=== PATIENT | female | born 1935 | race Caucasian/White ===

== ENCOUNTER 2017-05-13 17:02 | Inpatient (IN) | payer OTHER ==
--- NOTE | 2017-05-13 17:20 | PDOC ---
History of Present Illness - General Chief Complaint: Syncope/Near Syncope Stated Complaint: SEIZURE Time Seen by Provider: 05/13/17 17:19 History Source: Patient, Family (Daughter Fatou at bedside ) Exam Limitations: Clinical Condition (Patient has limited hearing in left ear ) - History of Present Illness Initial Comments: 81 yr old female with past history of breast carcinoma, schizoaffective disorder , and osteoarthritis presents to ED via EMS following seizure-like episodes. Patient states that she woke up this morning at 4 am with "tremors" in her legs and was unable to pour herself milk as her hands were shaking. She walked around and the tremors resolved but she continued to feel fatigued. Around noon she went to an oncology appt with Dr. Taylor. While in the office seated in the exam chair the patient experienced an episode where head extended backward, her jaw dropped and she lost consciousness for about 1 min. Patient did not hit her head during the episode. No shaking, incontinence, or tongue biting was noted by her daughter during the event. EMS was called to transfer the patient to the ED. While lying on the stretcher, the patient experienced a second episode where her head extended, her jaw dropped and she lost consciousness for about 1 min. During this episode EMS noted shaking of her limbs. The patient admits to extreme fatigue and weakness prior to the episodes. Patient admits to mild headache, feelings of her heart racing, constipation, urinary retention x few months, mild SOB with exertion, and cold intolerance. Patient denies fevers , chills, changes in vision or difficulty speaking. she denies any fever, chills , recent cold, or sick contact. She denies any abdominal pain , N/V diarrhea. she denies any swelling in her feet . pt was not seen by physician for many years, she has dysuria, frequency and walk up multiple time to pass urine but nothing comes out. pt lives with her daughter. PMH: breast cancer, schizoaffective disorder, osteoarthritis PSH: breast cancer left lumbectomy, right ear surgery when she was 12 years old. FH: breast cancer and colon cancer, prostate cancer social History: denies any smoking, alcohol or elicit drugs abuse. lives with her daughter Allergies NKDA but did not tolerate zyprexa the generic brand 05/13/17 19:02 05/13/17 19:23 Past History - Past Medical History Allergies/Adverse Reactions: Allergies Allergy/AdvReac Type Severity Reaction Status Date / Time No Known Drug Allergies Allergy Verified 05/13/17 17:10 Home Medications: Ambulatory Orders LORazepam [Ativan] 1 mg PO TID 08/11/12 Olanzapine [Zyprexa] 15 mg PO HS 08/11/12 Sertraline HCl [Zoloft -] 150 mg PO DAILY 08/11/12 traZODone HCL [Desyrel -] 50 mg PO DAILY 08/11/12 Cancer: Yes (lt breast) COPD: No Psychiatric Problems: Yes (depression, anxeity,schizoaffective disorder ) - Surgical History Other Surgical History: Age 9, ear surgx 05/13/17 18:45 - Family Disease History Comment:: Family hx of colon CA and breast CA - Suicide/Smoking/Psychosocial Hx Smoking History: Never smoked Have you smoked in the past 12 months: No Information on smoking cessation initiated: No Hx Alcohol Use: No Drug/Substance Use Hx: No Substance Use Type: None Patient Lives Alone: No Lives with/in: Lives with daughter *Physical Exam - Vital Signs Last Vital Signs Temp Pulse Resp BP Pulse Ox 98.0 F 74 18 150/69 100 05/13/17 17:11 05/13/17 17:11 05/13/17 17:11 05/13/17 17:11 05/13/17 17:11 - Physical Exam Comments: GENERAL: White female well-nourished and well-groomed in no acute distress HEAD: Normocephalic; atraumatic NECK: Supple, no lymphadenopathy, no thyromegaly, trachea midline CARDIOVASCULAR: No JVD; Regular at 78 bpm; normal S1/S2 LUNGS: CTA b/l no wheezes or rhonci ABD: No lesions or rashes; Normoactive bowel sounds; mild suprapubic tenderness ; no hepatomegaly/splenomegaly NEURO: CN II-XII grossly intact; decreased hearing in left ear; Sensation grossly intact UE/LE b/l; strength 5/5 b/l MSK: No bony deformities or contractures 05/13/17 19:00 ED Treatment Course - LABORATORY CBC & Chemistry Diagram: 05/13/17 18:14 05/13/17 18:49 - RADIOLOGY Radiology Studies Ordered: 05/13/17 19:[address] without contrast: no intra cranial acute pathology *DC/Admit/Observation/Transfer Diagnosis at time of Disposition: Seizure Syncope Qualifiers: Syncope type: unspecified Qualified Code(s): R55 - Syncope and collapse - Discharge Dispostion Admit: Yes - Referrals - Patient Instructions - Post Discharge Activity
[2017-05-13] MEDS ORDERED: levETIRAcetam 500 MG/5 ML INJECTION VIAL IVPB ONE ×2 (17:50→17:57)
--- NOTE | 2017-05-13 17:59 | PDOC ---
Attending Attestation - HPI HPI: 05/13/17 18:33 Pt is a 81 yo F BIBA with a PMHx of Anxiety, Depression, Breast CA, Schizophrenia who presents to the ED s/p new onset seizure today. As per daughter at bedside, patient was at her oncologists office for routine visit when she suddenly stared into space and fell to the ground. Patient seized on the ground for >5 minutes. Subsequently, patients post ictal period lasted 5 minutes and patient returned to baseline. EMS arrived to office and patient later seized again enroute to the ED. Patient presents to the ED for further evaluation. As per daughter, patient woke up experiencing arm and lip tremors which later subsided. Note, patient on Ativan, Zoloft, Trazodone. Patient denies any head trauma, LOC, other injury. Patient denies tongue biting, nausea or vomiting. Patient Oncologist: Brandon - Physicial Exam PE: 05/13/17 18:33 GENERAL: Well developed, well nourished. Awake and alert. No acute distress. HEENT: Normocephalic, atraumatic. PERRLA, EOMI. No conjunctival pallor. Sclera are non- icteric. Moist mucous membranes. Oropharynx is clear. NECK: Supple. Full ROM. No JVD. Carotid pulses 2+ and symmetric, without bruits. No thyromegaly. No lymphadenopathy. CARDIOVASCULAR: Regular rate and rhythm. No murmurs, rubs, or gallops. Distal pulses are 2+ and symmetric. PULMONARY: No evidence of respiratory distress. Lungs clear to auscultation bilaterally. No wheezing, rales or rhonchi. ABDOMINAL: Soft. Non-tender. Non-distended. No rebound or guarding. No organomegaly. Normoactive bowel sounds. MUSCULOSKELETAL Normal range of motion at all joints. No bony deformities or tenderness. No CVA tenderness. EXTREMITIES: No cyanosis. No clubbing. No edema. No calf tenderness. SKIN: Warm and dry. Normal capillary refill. No rashes. No jaundice. NEUROLOGICAL: Alert, awake, appropriate. Cranial nerves 2-12 intact. No deficits to light touch and temperature in face, upper extremities and lower extremities. No motor deficits in the in face, upper extremities and lower extremities. Normoreflexic in the upper and lower extremities. Normal speech. Toes are down-going bilaterally. PSYCHIATRIC: Cooperative. Good eye contact. Appropriate mood and affect. - Medical Decision Making 05/13/17 18:34 Documentation prepared by Zulema Villasenor, acting as medical billing and coding specialist for Clara Elias MD 05/13/17 21:02 Eunice paged via phone answering service. Awaiting call back. 05/13/17 21:32 Eunice returned the page and the patients case was discussed. <Zulema Villasenor - Last Filed: 05/13/17 21:32> - Resident Resident Name: RozTravis - ED Attending Attestation I have performed the following: I have examined & evaluated the patient, The case was reviewed & discussed with the resident, I agree w/resident's findings & plan, Exceptions are as noted - HPI HPI: 05/13/17 17:58 81-year-old woman brought in by ambulance from Dr. Luis M Taylor's office after a witnessed seizure. Patient has no known seizure history. She was a past medical history significant for breast cancer in 2012, lumpectomy and takes Xanax, zoloft, trazodone - Physicial Exam PE: 05/13/17 21:[address] Lindsey and the patient is admitted to [facility] telemetry. Spoke with Dr. Dawson from neurology and the patient will be started on Keppra 500 twice a day and we will get MRI with contrast. Gadolinium in the a.m. <Clara Elias - Last Filed: 05/13/17 21:35>
[2017-05-13 18:38] LABS: INR 1.17 (0.82-1.09); PROTHROMBIN TIME (PATIENT) 13.2 SEC (9.98-11.88)
[2017-05-13] MEDS ORDERED: levETIRAcetam 500 MG TABLET (FP) PO ONE ×2 (19:04→19:42)
[2017-05-13 19:14] LABS: BASO % 0.8 % (0-2.0); EOS % 3.1 % (0-4.5); HEMATOCRIT 32.9 % (32.4-45.2); HEMOGLOBIN 11.6 GM/dL (10.7-15.3); LYMPH % 19.3 % (8-40); MCH 31.4 pg (25.7-33.7); MCHC 35.4 g/dl (32.0-36.0); MEAN CELL VOLUME 88.7 fl (80-96); MEAN PLT VOLUME 8.3 fl (7.5-11.1); MONO % 9.4 % (3.8-10.2); NEUT % 67.4 % (42.8-82.8); PLATELET COUNT 177 K/MM3 (134-434); RDW 12.5 % (11.6-15.6); WHITE BLOOD COUNT 4.8 K/mm3 (4.0-10.0)
[2017-05-13] MEDS ORDERED: SODIUM CHLORIDE 1,000 ML IV SCH (19:15)
[2017-05-13 19:23] LABS: ALBUMIN 3.5 g/dl (3.4-5.0); ANION GAP 6 (8-16); BLOOD UREA NITROGEN 40 mg/dL (7-18); CALCIUM 8.2 mg/dL (8.5-10.1); CHLORIDE 111 mmol/L (98-107); CO2 26 mmol/L (21-32); CREATININE 0.7 mg/dL (0.55-1.02); GLUCOSE,RANDOM 103 mg/dL (74-106); SGPT/ALT 21 U/L (12-78); SODIUM 143 mmol/L (136-145)
[2017-05-13 19:25] LABS: ALK PHOS 120 U/L (45-117); BILIRUBIN,TOTAL 0.4 mg/dL (0.2-1.0); SGOT/AST 18 U/L (15-37); TOT PROT 6.3 g/dl (6.4-8.2)
[2017-05-13 20:42] LABS: PHOSPHOROUS 2.9 mg/dL (2.5-4.9)
[2017-05-13 20:43] LABS: MAGNESIUM 2.2 mg/dL (1.8-2.4)
[2017-05-13] MEDS ORDERED: LETROZOLE 2.5 MG TABLET (FP) PO ONE (21:51)
--- NOTE | 2017-05-13 22:45 | HP ---
Admitting History and Physical - Primary Care Physician PCP: Hardik Lindsey - Admission Chief Complaint: seizure History of Present Illness: 81 yo F BIBA with a PMHx of Anxiety, Depression, Breast CA, Schizophrenia who presents to the ED s/p new onset seizure today. As per daughter at bedside, patient was at her oncologists office for routine visit when she suddenly stared into space and fell to the ground. Patient seized on the ground for >5 minutes. Subsequently, patients post ictal period lasted 5 minutes and patient returned to baseline. EMS arrived to office and patient later seized again enroute to the ED. Patient presents to the ED for further evaluation. As per daughter, patient woke up experiencing arm and lip tremors which later subsided. history taken from ER records..poor historian - Past Medical History Psych: Yes: Anxiety, Depression - Smoking History Smoking history: Never smoked Have you smoked in the past 12 months: No - Alcohol/Substance Use Hx Alcohol Use: No Home Medications - Allergies Allergies/Adverse Reactions: Allergies Allergy/AdvReac Type Severity Reaction Status Date / Time No Known Drug Allergies Allergy Verified 05/13/17 17:10 - Home Medications Home Medications: Ambulatory Orders LORazepam [Ativan] 1 mg PO TID 08/11/12 Olanzapine [Zyprexa] 15 mg PO HS 08/11/12 Sertraline HCl [Zoloft -] 150 mg PO DAILY 08/11/12 traZODone HCL [Desyrel -] 50 mg PO DAILY 08/11/12 Physical Examination Vital Signs: Vital Signs Temperature 98.0 F 05/13/17 17:11 Pulse Rate 74 05/13/17 17:11 Respiratory Rate 18 05/13/17 17:11 Blood Pressure 150/69 05/13/17 17:11 O2 Sat by Pulse Oximetry (%) 97 05/13/17 18:18 Constitutional: Yes: No Distress HENT: Yes: Atraumatic Neck: Yes: Supple Cardiovascular: Yes: Regular Rate and Rhythm Respiratory: Yes: CTA Bilaterally Gastrointestinal: Yes: Normal Bowel Sounds Extremities: Yes: WNL Labs: CBC, BMP 05/13/17 18:14 05/13/17 18:49 Imaging - Results Cat Scan: Report Reviewed Problem List - Problems (1) Seizure Assessment/Plan: on seizure meds neuro consult Code(s): R56.9 - UNSPECIFIED CONVULSIONS (2) Syncope Code(s): R55 - SYNCOPE AND COLLAPSE Qualifiers: Syncope type: unspecified Qualified Code(s): R55 - Syncope and collapse (3) Anxiety and depression Assessment/Plan: on meds continue Code(s): F41.9 - ANXIETY DISORDER, UNSPECIFIED; F32.9 - MAJOR DEPRESSIVE DISORDER, SINGLE EPISODE, UNSPECIFIED Assessment/Plan Laboratory Tests 05/13/17 05/13/17 05/13/17 17:54 18:14 18:14 WBC 4.8 RBC 3.70 Hgb 11.6 Hct 32.9 MCV 88.7 MCH 31.4 MCHC 35.4 RDW 12.5 Plt Count 177 MPV 8.3 Neutrophils % 67.4 Lymphocytes % 19.3 Monocytes % 9.4 Eosinophils % 3.1 Basophils % 0.8 PT with INR 13.20 H INR 1.17 H Sodium Cancelled Potassium Cancelled Chloride Cancelled Carbon Dioxide Cancelled Anion Gap Cancelled BUN Cancelled Creatinine Cancelled Creat Clearance w eGFR Cancelled Random Glucose Cancelled Calcium Cancelled Phosphorus Magnesium Total Bilirubin Cancelled AST Cancelled ALT Cancelled Alkaline Phosphatase Cancelled Creatine Kinase Cancelled Troponin I Cancelled Total Protein Cancelled Albumin Cancelled 05/13/17 05/13/17 05/13/17 18:49 18:49 20:07 WBC RBC Hgb Hct MCV MCH MCHC RDW Plt Count MPV Neutrophils % Lymphocytes % Monocytes % Eosinophils % Basophils % PT with INR INR Sodium 143 Potassium 4.0 Chloride 111 H Carbon Dioxide 26 Anion Gap 6 L BUN 40 H Creatinine 0.7 Creat Clearance w eGFR > 60 Random Glucose 103 Calcium 8.2 L Phosphorus 2.9 Magnesium 2.2 Total Bilirubin 0.4 AST 18 ALT 21 Alkaline Phosphatase 120 H Creatine Kinase 92 Troponin I < 0.02 Total Protein 6.3 L Albumin 3.5 Active Medications Generic Name Dose Route Start Last Admin Trade Name Freq PRN Reason Stop Dose Admin Sodium Chloride 1,000 mls @ 75 mls/hr 05/13/17 19:15 05/13/17 19:45 Normal Saline - IV 75 mls/hr ASDIR CARMEN Administration Levetiracetam 500 mg 05/14/17 06:00 Keppra - PO BID CARMEN Trazodone HCl 50 mg 05/13/17 22:00 Desyrel - PO HS CARMEN
[2017-05-13] MEDS ORDERED: ACETAMINOPHEN 325 MG TABLET (FP) PO PRN (22:49)
[2017-05-13] MEDS: OLANZapine 5 MG TABLET PO SCH (23:08)
[2017-05-13] MEDS: traZODone HCL 50 MG TABLET (FP) PO SCH (23:09)
[2017-05-14] MEDS: levETIRAcetam 500 MG TABLET (FP) PO SCH ×3 (06:00→22:44)
[2017-05-14 06:55] LABS: BASO % 1.4 % (0-2.0); EOS % 5.4 % (0-4.5); HEMATOCRIT 28.9 % (32.4-45.2); HEMOGLOBIN 10.1 GM/dL (10.7-15.3); LYMPH % 33.7 % (8-40); MEAN CELL VOLUME 88.6 fl (80-96); MEAN PLT VOLUME 7.6 fl (7.5-11.1); MONO % 11.6 % (3.8-10.2); NEUT % 47.9 % (42.8-82.8); PLATELET COUNT 143 K/MM3 (134-434); RBC 3.26 M/mm3 (3.60-5.2); RDW 12.1 % (11.6-15.6); WHITE BLOOD COUNT 3.3 K/mm3 (4.0-10.0)
[2017-05-14 07:04] LABS: ALBUMIN 3.1 g/dl (3.4-5.0); ANION GAP 7 (8-16); BLOOD UREA NITROGEN 26 mg/dL (7-18); CALCIUM 8.4 mg/dL (8.5-10.1); CHLORIDE 112 mmol/L (98-107); CO2 27 mmol/L (21-32); CREATININE 0.7 mg/dL (0.55-1.02); GLUCOSE,RANDOM 92 mg/dL (74-106); POTASSIUM 4.2 mmol/L (3.5-5.1); SGOT/AST 15 U/L (15-37); SGPT/ALT 17 U/L (12-78); SODIUM 146 mmol/L (136-145)
[2017-05-14 07:05] LABS: ALK PHOS 108 U/L (45-117); BILIRUBIN,TOTAL 0.7 mg/dL (0.2-1.0); TOT PROT 5.7 g/dl (6.4-8.2)
[2017-05-14 09:25] LABS: URINE APPEARANCE CLEAR; URINE BILIRUBIN NEGATIVE (NEGATIVE); URINE BLOOD NEGATIVE (NEGATIVE); URINE COLOR LTYELLOW; URINE GLUCOSE (UA) NEGATIVE (NEGATIVE); URINE KETONE NEGATIVE (NEGATIVE); URINE NITRITE NEGATIVE (NEGATIVE); URINE PROTEIN NEGATIVE (NEGATIVE); URINE UROBILINOGEN NEGATIVE mg/dL (0.2-1.0)
[2017-05-14 09:27] LABS: URINE LEUK ESTERASE 1+ (NEGATIVE)
[2017-05-14 09:28] LABS: EPI CELLS RARE /HPF (FEW); URINE BACTERIA RARE /hpf (NONE SEEN); URINE MUCUS RARE
[2017-05-14] MEDS ORDERED: traZODone HCL 100 MG TABLET (FP) PO SCH (10:00)
[2017-05-14] MEDS: LORazepam 1 MG TABLET PO SCH ×2 (10:33→22:45)
[2017-05-14] MEDS: HEPARIN NA (PORCINE) 5,000 UNITS/ML 1ML VIAL SQ SCH ×2 (10:33→22:45)
[2017-05-14] MEDS: SERTRALINE HCL 50 MG TABLET (FP) PO SCH (10:33)
[2017-05-14] MEDS: LETROZOLE 2.5 MG TABLET (FP) PO SCH (10:34)
[2017-05-14] MEDS ORDERED: LORazepam 1 MG TABLET PO PRN (12:00)
--- NOTE | 2017-05-14 12:19 | EKG ---
Test Reason : Blood Pressure : / mmHG Vent. Rate : 072 BPM Atrial Rate : 072 BPM P-R Int : 148 ms QRS Dur : 088 ms QT Int : 364 ms P-R-T Axes : 052 003 015 degrees QTc Int : 398 ms NORMAL SINUS RHYTHM POSSIBLE LEFT ATRIAL ENLARGEMENT BORDERLINE ECG WHEN COMPARED WITH ECG OF 07-JUN-2005 22:31, NO SIGNIFICANT CHANGE WAS FOUND Confirmed by MD SLAVA, TRACE ([id number]) on 05/14/2017 12:18:49 PM Referred By: Confirmed By:TRACE PEDERSEN MD
--- NOTE | 2017-05-14 18:11 | CON.NEURO ---
Consult - History of Present Illness History of Present Illness: 81 yo F BIBA with a PMHx of Anxiety, Depression, Breast CA, Schizophrenia who presents to the ED s/p new onset seizure today. As per daughter at bedside, patient was at her oncologists office for routine visit when she suddenly stared into space and fell to the ground. Patient seized on the ground for >5 minutes. Subsequently, patients post ictal period lasted 5 minutes and patient returned to baseline. EMS arrived to office and patient later seized again enroute to the ED. Patient presents to the ED for further evaluation. As per daughter, patient woke up experiencing arm and lip tremors which later subsided. Note, patient on Ativan, Zoloft, Trazodone. Patient denies any head trauma, LOC, other injury. Patient denies tongue biting, nausea or vomiting. MRI Brain: COMPARISON: 09/30/2015 MRI brain. FINDINGS: There is image degradation from patient motion on all postcontrast sequences, somewhat limiting evaluation and decreasing exam sensitivity for enhancing lesions There is no abnormal restricted diffusion within the brain. There is no definite enhancing intracranial mass, abnormal contrast enhancement within the brain or leptomeninges. There is generalized, age-related volume loss with secondary prominence of the CSF spaces. There is no hydrocephalus. There is no extra- axial collection. No evidence of intra-axial hemorrhage. There are no mass effects. No midline shift or herniation pattern. The hippocampal formations are normal and symmetric in size and signal. The parahippocampal gyri and fornices are unremarkable. Flow related signal voids are present in the central arteries of the [place] and major dural sinuses. There is a partially empty sella turcica. The visualized bone marrow signal is unremarkable. There are no fluid levels in the visualized paranasal sinuses. Mild mucosal thickening along bilateral anterior ethmoids. There is fluid opacifying air cells and the tip of the left mastoid process. The visualized intraorbital contents are grossly unremarkable. IMPRESSION: No evidence of mesial temporal sclerosis, intracranial mass or cerebral infarction. No mass effects or hydrocephalus. - Alcohol/Substance Use Hx Alcohol Use: No - Smoking History Smoking history: Never smoked Have you smoked in the past 12 months: No Home Medications - Allergies Allergies/Adverse Reactions: Allergies Allergy/AdvReac Type Severity Reaction Status Date / Time No Known Drug Allergies Allergy Verified 05/13/17 17:10 - Home Medications Home Medications: Ambulatory Orders LORazepam [Ativan] 1 mg PO TID 08/11/12 Olanzapine [Zyprexa] 15 mg PO HS 08/11/12 Sertraline HCl [Zoloft -] 150 mg PO DAILY 08/11/12 traZODone HCL [Desyrel -] 50 mg PO DAILY 08/11/12 Physical Exam-Neuro Vital Signs: Vital Signs Temperature 100 F H 05/14/17 17:56 Pulse Rate 75 05/14/17 17:56 Respiratory Rate 18 05/14/17 17:56 Blood Pressure 128/75 05/14/17 17:56 O2 Sat by Pulse Oximetry (%) 95 05/14/17 09:00 Labs: CBC, BMP 05/14/17 05:30 05/14/17 05:30 INR, PTT INR 1.17 (0.82-1.09) H 05/13/17 17:54 Imaging - Results MRI: Report Reviewed, Image Reviewed Assessment/Plan 81 yo F BIBA with a PMHx of Anxiety, Depression, Breast CA, Schizophrenia who presents to the ED s/p new onset seizure x 2 . MRI Brain: no acute stroke or mass
--- NOTE | 2017-05-14 19:12 | PN ---
Progress Note, Physician History of Present Illness: stable - Current Medication List Current Medications: Active Medications Acetaminophen (Tylenol -) 650 mg PO Q6H PRN PRN Reason: FEVER Heparin Sodium (Porcine) (Heparin -) 5,000 unit SQ BID [facility] Last Admin: 05/14/17 10:33 Dose: 5,000 unit Letrozole (Femara -) 2.5 mg PO DAILY [facility] Last Admin: 05/14/17 10:34 Dose: 2.5 mg Levetiracetam (Keppra -) 500 mg PO BID [facility] Last Admin: 05/14/17 10:33 Dose: 500 mg Lorazepam (Ativan -) 1 mg PO BID [facility] Last Admin: 05/14/17 10:33 Dose: 1 mg Olanzapine (Zyprexa -) 15 mg PO [facility] Last Admin: 05/13/17 23:08 Dose: Not Given Sertraline HCl (Zoloft -) 150 mg PO DAILY [facility] Last Admin: 05/14/17 10:33 Dose: 150 mg Trazodone HCl (Desyrel -) 50 mg PO [facility] Last Admin: 05/13/17 23:09 Dose: Not Given - Objective Vital Signs: Vital Signs Temperature 100 F H 05/14/17 17:56 Pulse Rate 75 05/14/17 17:56 Respiratory Rate 18 05/14/17 17:56 Blood Pressure 128/75 05/14/17 17:56 O2 Sat by Pulse Oximetry (%) 95 05/14/17 09:00 Constitutional: Yes: No Distress HENT: Yes: Atraumatic Neck: Yes: Supple Cardiovascular: Yes: Regular Rate and Rhythm Respiratory: Yes: CTA Bilaterally Gastrointestinal: Yes: Normal Bowel Sounds Extremities: Yes: WNL Edema: No Peripheral Pulses WNL: Yes Neurological: Yes: Alert, Oriented Labs: CBC, BMP 05/14/17 05:30 05/14/17 05:30 INR, PTT INR 1.17 (0.82-1.09) H 05/13/17 17:54 Problem List - Problems (1) Seizure Assessment/Plan: on seizure meds seizure precautions neuro consult Code(s): R56.9 - UNSPECIFIED CONVULSIONS (2) Syncope Code(s): R55 - SYNCOPE AND COLLAPSE Qualifiers: Syncope type: unspecified Qualified Code(s): R55 - Syncope and collapse (3) Anxiety and depression Code(s): F41.9 - ANXIETY DISORDER, UNSPECIFIED; F32.9 - MAJOR DEPRESSIVE DISORDER, SINGLE EPISODE, UNSPECIFIED Assessment/Plan d/w daughter in detail care plan
--- NOTE | 2017-05-14 19:28 | CON.NEURO ---
Consult - History of Present Illness History of Present Illness: 81 yo F BIBA with a PMHx of Anxiety, Depression, Breast CA, Schizophrenia who presents to the ED s/p new onset seizure today. As per daughter at bedside, patient was at her oncologists office for routine visit when she suddenly stared into space and fell to the ground, there were no movements at all, the LOC lasted for 1 min, she came to and was NOT confused. She was than sat up in a chair- had sudden" slumping" of head and LOC lasting 30 seconds, she again wasnot confused and no movements noted. . Initial notes document post ictal "confusion" but the daughter Fatou denies these to me.returned to baseline. EMS arrived to office and patient later again had LOCx 30 seconds, this time ?? postictal confusion but no movements noted.enroute to the ED. Patient presents to the ED for further evaluation. Pts. daughter also reports a hx. of "racing heart beat" in past. As per daughter, patient woke up experiencing arm and lip tremors which later subsided. Note, patient on Ativan, Zoloft, Trazodone, Zyprtexa. Patient denies any head trauma, LOC, other injury. Patient denies tongue biting, nausea or vomiting. MRI Brain: COMPARISON: 09/30/2015 MRI brain. FINDINGS: There is image degradation from patient motion on all postcontrast sequences, somewhat limiting evaluation and decreasing exam sensitivity for enhancing lesions There is no abnormal restricted diffusion within the brain. There is no definite enhancing intracranial mass, abnormal contrast enhancement within the brain or leptomeninges. There is generalized, age-related volume loss with secondary prominence of the CSF spaces. There is no hydrocephalus. There is no extra- axial collection. No evidence of intra-axial hemorrhage. There are no mass effects. No midline shift or herniation pattern. The hippocampal formations are normal and symmetric in size and signal. The parahippocampal gyri and fornices are unremarkable. Flow related signal voids are present in the central arteries of the [place] and major dural sinuses. There is a partially empty sella turcica. The visualized bone marrow signal is unremarkable. There are no fluid levels in the visualized paranasal sinuses. Mild mucosal thickening along bilateral anterior ethmoids. There is fluid opacifying air cells and the tip of the left mastoid process. The visualized intraorbital contents are grossly unremarkable. IMPRESSION: No evidence of mesial temporal sclerosis, intracranial mass or cerebral infarction. No mass effects or hydrocephalus. - Past Medical History Psych: Yes: Anxiety, Depression - Alcohol/Substance Use Hx Alcohol Use: No - Smoking History Smoking history: Never smoked Have you smoked in the past 12 months: No Home Medications - Allergies Allergies/Adverse Reactions: Allergies Allergy/AdvReac Type Severity Reaction Status Date / Time No Known Drug Allergies Allergy Verified 05/13/17 17:10 - Home Medications Home Medications: Ambulatory Orders LORazepam [Ativan] 1 mg PO TID 08/11/12 Olanzapine [Zyprexa] 15 mg PO HS 08/11/12 Sertraline HCl [Zoloft -] 150 mg PO DAILY 08/11/12 traZODone HCL [Desyrel -] 50 mg PO DAILY 08/11/12 Physical Exam-Neuro Vital Signs: Vital Signs Temperature 100 F H 05/14/17 17:56 Pulse Rate 75 05/14/17 17:56 Respiratory Rate 18 05/14/17 17:56 Blood Pressure 128/75 05/14/17 17:56 O2 Sat by Pulse Oximetry (%) 95 05/14/17 09:00 Labs: CBC, BMP 05/14/17 05:30 05/14/17 05:30 INR, PTT INR 1.17 (0.82-1.09) H 05/13/17 17:54 - Neuro Exam Level Of Consciousness: Yes: Alert, Oriented to Person, Oriented to Place (Not oriented to time/date) Eyes: Yes: TY Speech: WNL Dominant Hand: Left Mini Mental Exam: Impaired attention/concentration. Somewhat pressured speech. Cranial Nerves II-XII Intact: Yes Gag: Present DTR's: 1+ Left Achilles, 1+ Right Achilles (Bilat.knee jerks-1+), 2+ Left Bicep , 2+ Right Bicep, 2+ Left Tricep, 2+ Right Tricep, 2+ Left Brachioradialis, 2+ Right Brachioradialis Motor Strength: 5/5: Left Arm, Right Arm, Left Leg, Right Leg Gait: Other (Has been ambulating with cane x years secondary to bilat. knee arthritis) Imaging - Results X-ray: Report Reviewed (MRI reviewed) Assessment/Plan 81 yo F BIBA with a PMHx of Anxiety, Depression, Breast CA, Schizophrenia who presents to the ED s/p 3 events that are said to have been seizures. MRI Brain: no acute stroke or mass. By the daughters description she appears to have had syncopal episodes given lack of movements/incontinence and at least after 2 spells clearly no confusion. Suggest: Cont. Keppra 500mg bid Syncope w/u-telemetry, cardiology consultation, carotid ultrasound and echocardiogram if deemed necessary by cardiology. Thank you, Meaghan Frederick MD.
[2017-05-14] MEDS ORDERED: BISACODYL 10 MG SUPP.RECT RC ONE (22:30)
[2017-05-14] MEDS: traZODone HCL 50 MG TABLET (FP) PO SCH (22:44)
[2017-05-14] MEDS: OLANZapine 5 MG TABLET PO SCH (22:45)
[2017-05-15] MEDS ORDERED: PT OWN MED DRAWER 7, Y5N ONE ×2 (10:10→10:54)
[2017-05-15] MEDS: LORazepam 1 MG TABLET PO SCH ×2 (10:40→21:22)
[2017-05-15] MEDS: SERTRALINE HCL 50 MG TABLET (FP) PO SCH (10:40)
[2017-05-15] MEDS: LETROZOLE 2.5 MG TABLET (FP) PO SCH (10:40)
[2017-05-15] MEDS: HEPARIN NA (PORCINE) 5,000 UNITS/ML 1ML VIAL SQ SCH ×2 (10:40→21:34)
[2017-05-15] MEDS: levETIRAcetam 500 MG TABLET (FP) PO SCH ×2 (10:40→21:21)
--- NOTE | 2017-05-15 17:50 | PN ---
Progress Note, Physician History of Present Illness: stable - Current Medication List Current Medications: Active Medications Acetaminophen (Tylenol -) 650 mg PO Q6H PRN PRN Reason: FEVER Heparin Sodium (Porcine) (Heparin -) 5,000 unit SQ BID [facility] Last Admin: 05/15/17 10:40 Dose: 5,000 unit Letrozole (Femara -) 2.5 mg PO DAILY [facility] Last Admin: 05/15/17 10:40 Dose: 2.5 mg Levetiracetam (Keppra -) 500 mg PO BID [facility] Last Admin: 05/15/17 10:40 Dose: 500 mg Lorazepam (Ativan -) 1 mg PO BID [facility] Last Admin: 05/15/17 10:40 Dose: 1 mg Olanzapine (Zyprexa -) 15 mg PO HS [facility] Last Admin: 05/14/17 22:45 Dose: 15 mg Sertraline HCl (Zoloft -) 150 mg PO DAILY [facility] Last Admin: 05/15/17 10:40 Dose: 150 mg Trazodone HCl (Desyrel -) 50 mg PO HS [facility] Last Admin: 05/14/17 22:44 Dose: 50 mg - Objective Vital Signs: Vital Signs Temperature 98.4 F 05/15/17 14:13 Pulse Rate 80 05/15/17 14:13 Respiratory Rate 14 05/15/17 14:13 Blood Pressure 113/64 05/15/17 14:13 O2 Sat by Pulse Oximetry (%) 95 05/15/17 09:00 Constitutional: Yes: No Distress HENT: Yes: Atraumatic Neck: Yes: Supple Cardiovascular: Yes: Regular Rate and Rhythm Respiratory: Yes: CTA Bilaterally Gastrointestinal: Yes: Normal Bowel Sounds Extremities: Yes: WNL Edema: No Peripheral Pulses WNL: Yes Neurological: Yes: Alert, Oriented Labs: CBC, BMP 05/14/17 05:30 05/14/17 05:30 INR, PTT INR 1.17 (0.82-1.09) H 05/13/17 17:54 Problem List - Problems (1) Seizure Assessment/Plan: on seizure meds seizure precautions neuro consult mri done report reviewed Code(s): R56.9 - UNSPECIFIED CONVULSIONS (2) Syncope Assessment/Plan: will get carotid us cardiology consult as per neuro recommendation troponin negative Code(s): R55 - SYNCOPE AND COLLAPSE Qualifiers: Syncope type: unspecified Qualified Code(s): R55 - Syncope and collapse (3) Anxiety and depression Code(s): F41.9 - ANXIETY DISORDER, UNSPECIFIED; F32.9 - MAJOR DEPRESSIVE DISORDER, SINGLE EPISODE, UNSPECIFIED (4) Breast CA Assessment/Plan: h/o stable Code(s): C50.919 - MALIGNANT NEOPLASM OF UNSP SITE OF UNSPECIFIED FEMALE BREAST Qualifiers: Laterality: unspecified laterality
[2017-05-15] MEDS: traZODone HCL 50 MG TABLET (FP) PO SCH (21:21)
[2017-05-15] MEDS: OLANZapine 5 MG TABLET PO SCH (21:22)
--- NOTE | 2017-05-16 08:32 | CON.CARD ---
Consult Consult Specialty:: Cardiology Referred by:: Dr. Lindsey Reason for Consultation:: Seizure vs Syncope - History of Present Illness Chief Complaint: I "passed out" History of Present Illness: 81F with PMH Breast CA admitted to tele with seizure vs syncope. Episode of altered MS yesterday- " blank stare", unresponsive. She denies CP, SOB, pleuritic pain. Denies Palps. Seen by Neuro, MRI brain negative. While I was examining her she had another episode of unresponsiveness, eyes open , blinking, not speaking. Had pulse entire time and NSR on Tele. After approximately 10 seconds, regained normal mental status - History Source History Provided By: Patient, Medical Record - Past Medical History Heme/Onc: Yes: Other (Breast CA) Psych: Yes: Anxiety, Depression - Alcohol/Substance Use Hx Alcohol Use: No - Smoking History Smoking history: Never smoked Have you smoked in the past 12 months: No - Social History Usual Living Arrangement: With Child Home Medications - Allergies Allergies/Adverse Reactions: Allergies Allergy/AdvReac Type Severity Reaction Status Date / Time No Known Drug Allergies Allergy Verified 05/13/17 17:10 - Home Medications Home Medications: Ambulatory Orders LORazepam [Ativan] 1 mg PO TID 08/11/12 Olanzapine [Zyprexa] 15 mg PO HS 08/11/12 Sertraline HCl [Zoloft -] 150 mg PO DAILY 08/11/12 traZODone HCL [Desyrel -] 50 mg PO DAILY 08/11/12 Family Disease History - Family Disease History Family History: Unremarkable (not pertinent to this presentation) Review of Systems Findings/Remarks: ER record reviewed: "81 yr old female with past history of breast carcinoma, schizoaffective disorder, and osteoarthritis presents to ED via EMS following seizure-like episodes. Patient states that she woke up this morning at 4 am with "tremors" in her legs and was unable to pour herself milk as her hands were shaking. She walked around and the tremors resolved but she continued to feel fatigued. Around noon she went to an oncology appt with Dr. Taylor. While in the office seated in the exam chair the patient experienced an episode where head extended backward, her jaw dropped and she lost consciousness for about 1 min. Patient did not hit her head during the episode. No shaking, incontinence, or tongue biting was noted by her daughter during the event. EMS was called to transfer the patient to the ED. While lying on the stretcher, the patient experienced a second episode where her head extended, her jaw dropped and she lost consciousness for about 1 min. During this episode EMS noted shaking of her limbs. The patient admits to extreme fatigue and weakness prior to the episodes. Patient admits to mild headache, feelings of her heart racing, constipation, urinary retention x few months, mild SOB with exertion, and cold intolerance. Patient denies fevers, chills, changes in vision or difficulty speaking. she denies any fever, chills , recent cold, or sick contact. She denies any abdominal pain , N/V diarrhea. she denies any swelling in her feet . pt was not seen by physician for many years, she has dysuria, frequency and walk up multiple time to pass urine but nothing comes out. pt lives with her daughter. PMH: breast cancer, schizoaffective disorder, osteoarthritis" - Review of Systems Constitutional: reports: No Symptoms Eyes: reports: No Symptoms HENT: reports: No Symptoms Neck: reports: No Symptoms Cardiovascular: reports: No Symptoms Respiratory: reports: No Symptoms Gastrointestinal: reports: No Symptoms Genitourinary: reports: No Symptoms Neurological: reports: Change in LOC Endocrine: reports: No Symptoms Hematology/Lymphatic: reports: No Symptoms Psychiatric: reports: No Symptoms Vital Signs: Vital Signs Temperature 98.1 F 05/16/17 05:28 Pulse Rate 70 05/16/17 05:28 Respiratory Rate 18 05/16/17 05:28 Blood Pressure 116/71 05/16/17 05:28 O2 Sat by Pulse Oximetry (%) 95 05/15/17 21:00 Constitutional: Yes: No Distress, Calm Eyes: Yes: Conjunctiva Clear, EOM Intact HENT: Yes: Atraumatic, Normocephalic Neck: Yes: Trachea Midline Respiratory: Yes: CTA Bilaterally Gastrointestinal: Yes: Soft Cardiovascular: Yes: Regular Rate and Rhythm, Other (no murmurs) JVD: No Carotid Bruit: No PMI: Non-Displaced Heart Sounds: Yes: S1, S2 (RRR) Edema: No Peripheral Pulses WNL: Yes Neurological: Yes: Alert ...Motor Strength: WNL - Other Data Labs, Other Data: CBC, BMP 05/14/17 05:30 05/14/17 05:30 INR, PTT INR 1.17 (0.82-1.09) H 05/13/17 17:54 Laboratory Tests 05/13/17 05/13/17 05/14/17 17:54 18:49 05:30 WBC 3.3 L D Hgb 10.1 L D Plt Count 143 INR 1.17 H Sodium Potassium BUN Creatinine Creatine Kinase 92 Troponin I < 0.02 05/14/17 05:30 WBC Hgb Plt Count INR Sodium 146 H Potassium 4.2 BUN 26 H Creatinine 0.7 Creatine Kinase Troponin I NSR, Nl QT Echo: Pending Imaging - Results Chest X-ray: Report Reviewed, Image Reviewed Cat Scan: Report Reviewed MRI: Report Reviewed Problem List - Problems (1) Breast CA Code(s): C50.919 - MALIGNANT NEOPLASM OF UNSP SITE OF UNSPECIFIED FEMALE BREAST Qualifiers: Laterality: unspecified laterality (2) Seizure Code(s): R56.9 - UNSPECIFIED CONVULSIONS Assessment/Plan IMP: History of breast CA Episodes of altered MS, recurrent. Most likely seizures Episode during my exam, normal sinus rhythm on telemetry. REC: 1. Neuro work up in progress 2. Echo for EF assessment; agree with Carotid Duplex to assess vertebral artery patency/blood flow. 3. Continue telemetry 4. Seizure precautions Thank you.
--- NOTE | 2017-05-16 08:57 | PN ---
Progress Note (short form) - Note Progress Note: 81 yo F BIBA with a PMHx of Anxiety, Depression, Breast CA, Schizophrenia who presents to the ED s/p new onset seizure today. As per daughter at bedside, patient was at her oncologists office for routine visit when she suddenly stared into space and fell to the ground, there were no movements at all, the LOC lasted for 1 min, she came to and was NOT confused. She was than sat up in a chair- had sudden" slumping" of head and LOC lasting 30 seconds, she again wasnot confused and no movements noted. . Initial notes document post ictal "confusion" but the daughter Fatou denies these to me.returned to baseline. EMS arrived to office and patient later again had LOCx 30 seconds, this time ?? postictal confusion but no movements noted.enroute to the ED. Patient presents to the ED for further evaluation. Pts. daughter also reports a hx. of "racing heart beat" in past. Patient denies any head trauma, LOC, other injury. Patient denies tongue biting, nausea or vomiting. FU : on keppra 500BID , as per cardiology while examining her she had staring spell, MRI (-) MRI Brain: COMPARISON: 09/30/2015 MRI brain. FINDINGS: There is image degradation from patient motion on all postcontrast sequences, somewhat limiting evaluation and decreasing exam sensitivity for enhancing lesions There is no abnormal restricted diffusion within the brain. There is no definite enhancing intracranial mass, abnormal contrast enhancement within the brain or leptomeninges. There is generalized, age-related volume loss with secondary prominence of the CSF spaces. There is no hydrocephalus. There is no extra- axial collection. No evidence of intra-axial hemorrhage. There are no mass effects. No midline shift or herniation pattern. The hippocampal formations are normal and symmetric in size and signal. The parahippocampal gyri and fornices are unremarkable. Flow related signal voids are present in the central arteries of the [place] and major dural sinuses. There is a partially empty sella turcica. The visualized bone marrow signal is unremarkable. There are no fluid levels in the visualized paranasal sinuses. Mild mucosal thickening along bilateral anterior ethmoids. There is fluid opacifying air cells and the tip of the left mastoid process. The visualized intraorbital contents are grossly unremarkable. IMPRESSION: No evidence of mesial temporal sclerosis, intracranial mass or cerebral infarction. No mass effects or hydrocephalus. - Past Medical History Psych: Yes: Anxiety, Depression - Alcohol/Substance Use Hx Alcohol Use: No - Smoking History Smoking history: Never smoked Have you smoked in the past 12 months: No Home Medications - Allergies Allergies/Adverse Reactions: Allergies Allergy/AdvReac Type Severity Reaction Status Date / Time No Known Drug Allergies Allergy Verified 05/13/17 17:10 - Home Medications Home Medications: Ambulatory Orders LORazepam [Ativan] 1 mg PO TID 08/11/12 Olanzapine [Zyprexa] 15 mg PO HS 08/11/12 Sertraline HCl [Zoloft -] 150 mg PO DAILY 08/11/12 traZODone HCL [Desyrel -] 50 mg PO DAILY 08/11/12 Physical Exam-Neuro Vital Signs: Vital Signs Temperature 98.1 F 05/16/17 05:28 Pulse Rate 70 05/16/17 05:28 Respiratory Rate 18 05/16/17 05:28 Blood Pressure 116/71 05/16/17 05:28 O2 Sat by Pulse Oximetry (%) 95 05/15/17 21:00 Labs: CBCD WBC 3.3 K/mm3 (4.0-10.0) L D 05/14/17 05:30 RBC 3.26 M/mm3 (3.60-5.2) L 05/14/17 05:30 Hgb 10.1 GM/dL (10.7-15.3) L D 05/14/17 05:30 Hct 28.9 % (32.4-45.2) L 05/14/17 05:30 MCV 88.6 fl (80-96) 05/14/17 05:30 MCHC 35.0 g/dl (32.0-36.0) 05/14/17 05:30 RDW 12.1 % (11.6-15.6) 05/14/17 05:30 Plt Count 143 K/MM3 (134-434) 05/14/17 05:30 MPV 7.6 fl (7.5-11.1) 05/14/17 05:30 CMP Sodium 146 mmol/L (136-145) H 05/14/17 05:30 Potassium 4.2 mmol/L (3.5-5.1) 05/14/17 05:30 Chloride 112 mmol/L (98-107) H 05/14/17 05:30 Carbon Dioxide 27 mmol/L (21-32) 05/14/17 05:30 Anion Gap 7 (8-16) L 05/14/17 05:30 BUN 26 mg/dL (7-18) H 05/14/17 05:30 Creatinine 0.7 mg/dL (0.55-1.02) 05/14/17 05:30 Creat Clearance w eGFR > 60 (>60) 05/14/17 05:30 Calcium 8.4 mg/dL (8.5-10.1) L 05/14/17 05:30 Total Bilirubin 0.7 mg/dL (0.2-1.0) D 05/14/17 05:30 AST 15 U/L (15-37) 05/14/17 05:30 ALT 17 U/L (12-78) 05/14/17 05:30 Alkaline Phosphatase 108 U/L (45-117) 05/14/17 05:30 Total Protein 5.7 g/dl (6.4-8.2) L 05/14/17 05:30 Albumin 3.1 g/dl (3.4-5.0) L 05/14/17 05:30 - Neuro Exam Level Of Consciousness: Yes: Alert, Oriented to Person, Oriented to Place (Not oriented to time/date) Eyes: Yes: TY Speech: WNL Dominant Hand: Left Mini Mental Exam: Impaired attention/concentration. Somewhat pressured speech. Cranial Nerves II-XII Intact: Yes Gag: Present DTR's: 1+ Left Achilles, 1+ Right Achilles (Bilat.knee jerks-1+), 2+ Left Bicep , 2+ Right Bicep, 2+ Left Tricep, 2+ Right Tricep, 2+ Left Brachioradialis, 2+ Right Brachioradialis Motor Strength: 5/5: Left Arm, Right Arm, Left Leg, Right Leg Gait: Other (Has been ambulating with cane x years secondary to bilat. knee arthritis) Imaging - Results X-ray: Report Reviewed (MRI reviewed) Assessment/Plan 81 yo F BIBA with a PMHx of Anxiety, Depression, Breast CA, Schizophrenia who presents to the ED s/p 3 events that are said to have been seizures. MRI Brain: no acute stroke or mass. ? another staring spell event / seizure inc Keppra 750mg bid get routine EEG cardiac [facility] for ? underlying syncope. Dr Dawson
[2017-05-16] MEDS ORDERED: PT OWN MED DRAWER 7, Y5N ONE (09:05)
[2017-05-16] MEDS: HEPARIN NA (PORCINE) 5,000 UNITS/ML 1ML VIAL SQ SCH (09:27)
[2017-05-16] MEDS: levETIRAcetam 500 MG TABLET (FP) PO SCH (09:28)
[2017-05-16] MEDS: SERTRALINE HCL 50 MG TABLET (FP) PO SCH (09:28)
[2017-05-16] MEDS: LORazepam 1 MG TABLET PO SCH (09:28)
[2017-05-16] MEDS: LETROZOLE 2.5 MG TABLET (FP) PO SCH (09:28)
[2017-05-16] MEDS ORDERED: levETIRAcetam 250 MG TABLET (FP) PO SCH (10:00)
[2017-05-16 14:40] VITALS: PULSE 72; TEMP 98.6
--- NOTE | 2017-05-16 16:01 | PN ---
Progress Note (short form) - Note Progress Note: Addendum : pt appears clinically stable will get outpt EEG monitoring neuro cleared for DC Dr Dawson
--- NOTE | 2017-05-16 17:57 | DS ---
Physical Examination Vital Signs: Vital Signs Temperature 98.6 F 05/16/17 14:00 Pulse Rate 72 05/16/17 14:00 Respiratory Rate 16 05/16/17 14:00 Blood Pressure 112/56 05/16/17 14:00 O2 Sat by Pulse Oximetry (%) 95 05/16/17 09:00 Constitutional: Yes: No Distress HENT: Yes: Atraumatic Neck: Yes: Supple Cardiovascular: Yes: Regular Rate and Rhythm Respiratory: Yes: CTA Bilaterally Gastrointestinal: Yes: Normal Bowel Sounds Extremities: Yes: WNL Edema: Yes Peripheral Pulses WNL: Yes Neurological: Yes: Alert, Oriented Labs: CBC, BMP 05/14/17 05:30 05/14/17 05:30 Discharge Summary Reason For Visit: SEIZURE,SYNCOPE Current Active Problems Anxiety and depression (Acute) Breast CA (Acute) Seizure (Acute) Syncope (Acute) - Instructions - Home Medications Comprehensive Discharge Medication List: Ambulatory Orders LORazepam [Ativan] 1 mg PO TID 08/11/12 Olanzapine [Zyprexa] 15 mg PO HS 08/11/12 Sertraline HCl [Zoloft -] 150 mg PO DAILY 08/11/12 traZODone HCL [Desyrel -] 50 mg PO DAILY 08/11/12 dc home d/w neuro and cardio...follow up in their offices
[2017-05-16 18:34] VITALS: BP 118/68
== END 2017-05-16 19:08 | disposition home or self-care (01) | DRG 101 ==
LOC: JER 17:02 → JERBED 21:05 → OBSVTOIN 22:48 → J4S 22:49
PROVIDERS: ADMIT Internal Medicine; ATTEND Internal Medicine
DX: R56.9 Unspecified convulsions (principal); R55 Syncope and collapse; F41.8 Other specified anxiety disorders; C50.919 Malignant neoplasm of unspecified site of unspecified female breast
CPT/HCPCS: 36415; 70450-TC; 70552-TC; 71045-TC-FY; 80053; 81003; 81015; 82550; 83735; 84100; 84484; 85025; 85610; 86850; 86900; 86901; 87086; 93005; 93010; 93306-TC; 95816; 97116-GP; 97161-GP; 99285-25; G0378; J1644; J7030